=== PATIENT | male | born 1995 | race African-American/Black ===

== ENCOUNTER 2021-02-07 19:52 | Emergency (ER) | payer OTHER ==
[~2021-02-07] VITALS: Ht 172.7 cm; Wt 64.0 kg
[2021-02-07 19:53] VITALS: BP 124/76
== END 2021-02-07 20:20 | disposition left against medical advice (07) ==
LOC: ER 19:52
DX: Z53.21 Procedure and treatment not carried out due to patient leaving prior to being seen by health care provider (principal)